=== PATIENT | male | born 1950 | race Caucasian/White ===

== ENCOUNTER → 2020-03-15 | Outpatient (REF) | payer OTHER ==
[~2020-03-15] MED LIST: ASPI81TA52 PO; CHEW500C2 PO; ZOCO20TA PO
[2020-03-15 19:17] LABS: PERCENT SATURATION 9.5 % (19.7-50.0)
== END ==
LOC: M LAB REF 17:08
PROVIDERS: ATTEND Nurse Practitioner Adult Health
DX: D64.9 Anemia, unspecified (principal)

== ENCOUNTER → 2020-07-19 | Outpatient (CLI) | payer OTHER ==
--- NOTE | 2020-08-13 15:15 | REP ---
RIGHT SHOULDER RADIOGRAPHS CLINICAL: Right shoulder pain. COMPARISON: 07/11/2018. TECHNIQUE: Internal rotation, external rotation, and Y view of the right shoulder. FINDINGS: Proximal humeral metaphysis demonstrates stable enchondroma. Cortical irregularity at the acromioclavicular joint along with blunting and subtle osteophyte formation along the calcified glenoid rim is appreciated and similar to prior examination. No acute fracture or dislocation. No obvious loose bodies are identified. 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 * Stable enchondroma involving the proximal right humerus. MTDD
== END ==
LOC: M RAD 14:37
PROVIDERS: ATTEND Orthopaedic Surgery
DX: G89.29 Other chronic pain (principal)

== ENCOUNTER → 2020-08-20 | Outpatient (REF) | payer OTHER ==
[2020-08-20 13:44] LABS: HEMATOCRIT 46.4 % (42.0-52.0)
[2020-08-20 14:11] LABS: PERCENT SATURATION 24.4 % (19.7-50.0)
== END ==
LOC: M LAB REF 12:39
PROVIDERS: ATTEND Nurse Practitioner Adult Health
DX: D50.9 Iron deficiency anemia, unspecified (principal)

== ENCOUNTER → 2020-11-22 | Outpatient (CLI) | payer OTHER ==
[~2020-11-22] MED LIST changes: +CALC-362 PO; -CHEW500C2 PO; +ECOT81TA5 PO; +ENAL5TA; +METF-838; +VITA50005
== END ==
LOC: M LABSMTC 11:19
PROVIDERS: ATTEND Anesthesiology
DX: Z01.812 Encounter for preprocedural laboratory examination (principal); Z20.822 Contact with and (suspected) exposure to COVID-19

== ENCOUNTER 2020-11-27 09:17 | Day surgery (SDC) | payer OTHER ==
[~2020-11-27] VITALS: Ht 175.3 cm; Wt 93.4 kg
[~2020-11-27 09:17] MED LIST changes: +LIDOCAINE 2% 100MG/5ML SDV (FOR ANES.) As Ordered ONE; +NS 1,000 ML IV ONE; +propofoL 200 MG/20 ML VIAL As Ordered ONE
--- NOTE | 2020-11-27 11:16 | ROOR ---
Patient Name: Zayda Flores Procedure Date: 11/27/2020 10:46 AM Date of : 1950 Age: 70 [facility]: [facility] Gender: Male Note Status: Finalized Procedure: Total Colonoscopy to Cecum + Cold Snare Polypectomy + Hemoclips Indications: High risk colon cancer surveillance: Personal history of colonic polyps, Last colonoscopy: 2015 Providers: Fahad Armijo MD Referring MD: Claudia Lala NP Requesting Provider: Medicines: Monitored Anesthesia Care Complications: No immediate complications. Procedure: Pre-Anesthesia Assessment: - The heart rate, respiratory rate, oxygen saturations, blood pressure, adequacy of pulmonary ventilation, and response to care were monitored throughout the procedure. The Colonoscope was introduced through the anus and advanced to the cecum, identified by appendiceal orifice and ileocecal valve. The colonoscopy was performed without difficulty. The patient tolerated the procedure well. The quality of the bowel preparation was excellent. Findings: The perianal and digital rectal examinations were normal. Non-bleeding internal hemorrhoids were found during retroflexion. The hemorrhoids were small and Grade I (internal hemorrhoids that do not prolapse). Two sessile polyps were found in the transverse colon. The polyps were medium in size. These polyps were removed with a cold snare. Resection and retrieval were complete. To prevent bleeding after the polypectomy, two hemostatic clips were successfully placed (MR conditional). There was no bleeding at the end of the procedure. Multiple small and large-mouthed diverticula were found in the recto-sigmoid colon, sigmoid colon and descending colon. The exam was otherwise without abnormality on direct and retroflexion views. Impression: - Non-bleeding internal hemorrhoids. - Two medium polyps in the transverse colon, removed with a cold snare. Resected and retrieved. Clips (MR conditional) were placed. - Diverticulosis in the recto-sigmoid colon, in the sigmoid colon and in the descending colon. - The examination was otherwise normal on direct and retroflexion views. - The exam was otherwise normal to the cecum. Recommendation: - Patient has a contact number available for emergencies. The signs and symptoms of potential delayed complications were discussed with the patient. Return to normal activities tomorrow. Written discharge instructions were provided to the patient. - High fiber diet. - Discharge patient to home. - Continue present medications. - Await pathology results. - Telephone GI clinic for pathology results in 1 week. - Repeat colonoscopy in 3 years for surveillance based on pathology results. - Return to referring physician. - The findings and recommendations were discussed with the patient. Procedure Code(s): --- Professional --- 79217, Colonoscopy, flexible; with removal of tumor(s), polyp(s), or other lesion(s) by snare technique Diagnosis Code(s): --- Professional --- Z86.010, Personal history of colonic polyps K64.0, First degree hemorrhoids K63.5, Polyp of colon K57.30, Diverticulosis of large intestine without perforation or abscess without bleeding CPT copyright 2019 [employer]. All rights reserved. The codes documented in this report are preliminary and upon disciplinary hearing officer review may be revised to meet current compliance requirements. Fahad Armijo MD Fahad Armijo MD 11/27/2020 11:15:53 AM Electronically signed by Fahad Armijo MD Number of Addenda: 0 Note Initiated On: 11/27/2020 10:46 AM Estimated Blood Loss: Estimated blood loss: none.
[2020-11-27 11:35] VITALS: BP 154/69
== END 2020-11-27 11:45 | disposition home or self-care (01) ==
LOC: M OPP 09:17
PROVIDERS: ATTEND Internal Medicine Gastroenterology
DX: Z12.11 Encounter for screening for malignant neoplasm of colon (principal); Z86.010 Personal history of colon polyps; K63.5 Polyp of colon; K64.0 First degree hemorrhoids; K57.30 Diverticulosis of large intestine without perforation or abscess without bleeding; E11.9 Type 2 diabetes mellitus without complications; G47.30 Sleep apnea, unspecified; Z79.82 Long term (current) use of aspirin; Z79.84 Long term (current) use of oral hypoglycemic drugs; Z79.899 Other long term (current) drug therapy

== ENCOUNTER → 2021-12-10 | Outpatient (REF) | payer BC, OTHER ==
[~2021-12-10] MED LIST changes: +ERGO500029; -LIDOCAINE 2% 100MG/5ML SDV (FOR ANES.) As Ordered ONE; -NS 1,000 ML IV ONE; -VITA50005; -propofoL 200 MG/20 ML VIAL As Ordered ONE
[2021-12-11 13:55] LABS: FERRITIN 6 NG/ML (26-388); IRON (FE) 36 UG/DL (65-175)
== END ==
LOC: M LAB REF 12:00
PROVIDERS: ATTEND Nurse Practitioner Adult Health
DX: R71.8 Other abnormality of red blood cells (principal)

== ENCOUNTER → 2022-06-24 | Outpatient (CLI) | payer BC, OTHER ==
[~2022-06-24] MED LIST changes: +SIMV-253 PO; -ZOCO20TA PO
== END ==
LOC: M WUC 13:14
PROVIDERS: ATTEND Nurse Practitioner Adult Health
DX: M54.50 Low back pain, unspecified (principal)

== ENCOUNTER → 2023-01-05 | Outpatient (REF) | payer BC ==
[~2023-01-05] MED LIST changes: +ENAL1TAB48; -ENAL5TA
[2023-01-05 18:07] LABS: HEMATOCRIT 44.1 % (42.0-52.0)
[2023-01-05 18:51] LABS: FERRITIN 8.5 NG/ML (10.5-307.3)
[2023-01-05 19:25] LABS: PERCENT SATURATION 13.5 % (19.7-50.0)
== END ==
LOC: M LAB REF 17:24
PROVIDERS: ATTEND Nurse Practitioner Adult Health
DX: D50.9 Iron deficiency anemia, unspecified (principal)

== ENCOUNTER 2024-05-29 08:16 | Day surgery (SDC) | payer MEDICARE ==
[~2024-05-29] VITALS: Ht 175.3 cm; Wt 78.7 kg
[~2024-05-29 08:16] MED LIST changes: -ENAL1TAB48; +ENAL1TAB48 PO; -ERGO500029; +ERGO500029 PO; +JARD1TAB3 PO; -METF-838; +METF-838 PO; +NS 1,000 ML IV ONE; +SEMA2PEN
[2024-05-29] MEDS ORDERED: propofoL 500 MG/50 ML VIAL As Ordered ONE (08:56)
[2024-05-29] MEDS ORDERED: LIDOCAINE 2% 100MG/5ML SDV (FOR ANES.) As Ordered ONE (08:56)
[2024-05-29 09:45] VITALS: BP 148/70; O2SAT 99
== END 2024-05-29 09:55 | disposition home or self-care (01) ==
LOC: M OPP 08:16
PROVIDERS: ATTEND Internal Medicine Gastroenterology
DX: Z12.11 Encounter for screening for malignant neoplasm of colon (principal); Z86.010 Personal history of colon polyps; D12.6 Benign neoplasm of colon, unspecified; K64.0 First degree hemorrhoids; K57.30 Diverticulosis of large intestine without perforation or abscess without bleeding; E11.9 Type 2 diabetes mellitus without complications; G47.30 Sleep apnea, unspecified; Z99.89 Dependence on other enabling machines and devices; Z79.02 Long term (current) use of antithrombotics/antiplatelets; Z79.82 Long term (current) use of aspirin; Z79.84 Long term (current) use of oral hypoglycemic drugs; Z79.811 Long term (current) use of aromatase inhibitors

== ENCOUNTER 2024-11-05 15:57 | Emergency (ER) | payer MEDICARE ==
[~2024-11-05] VITALS: Ht 175.3 cm; Wt 81.1 kg
[~2024-11-05 15:57] MED LIST changes: -NS 1,000 ML IV ONE
[2024-11-05] MEDS: ASPIRIN 81MG CHEW TABLET PO ONE (16:35)
[2024-11-05 16:56] LABS: BASO % 0.4 % (0.0-1.0); EOS # 0.1 10^3/uL (0.0-0.5); EOS % 1.5 % (0.0-3.0); HEMATOCRIT 42.6 % (42.0-52.0); HEMOGLOBIN 13.6 g/dl (13.5-17.5); LYMPH # 1.3 10^3/uL (1.5-5.0); LYMPH % 29.2 % (24.0-44.0); MEAN CORPUSCULAR HEMOGLOBIN 27.6 pg (27.0-33.0); MEAN CORPUSCULAR HGB CONC 31.9 g/dl (32.0-36.5); MEAN CORPUSCULAR VOLUME 86.4 fl (80.0-96.0); MONO # 0.3 10^3/uL (0.0-0.8); MONO % 6.9 % (2.0-8.0); NEUTROPHILS # 2.8 10^3/uL (1.5-8.5); NEUTROPHILS % 61.6 % (36.0-66.0); PLATELET COUNT, AUTOMATED 189 10^3/uL (150-450); RED BLOOD COUNT 4.93 10^6/uL (4.30-6.10); WHITE BLOOD COUNT 4.5 10^3/uL (4.0-10.0)
[2024-11-05] MEDS ORDERED: ISOVUE-370 76% 100ML VIAL As Ordered ONE (17:05)
[2024-11-05 17:18] LABS: LIPASE 51 U/L (12-53)
[2024-11-05 17:19] LABS: CK-MB VALUE MASS 2.2 NG/ML (<3.6)
[2024-11-05 17:21] LABS: ALBUMIN 3.7 G/DL (3.2-5.2); ALKALINE PHOSPHATASE 96 U/L (40-129); ALT/SGPT 20 U/L (7.0-40); AST/SGOT 17 U/L (<34); BILIRUBIN,DIRECT 0.1 MG/DL (<0.4); BILIRUBIN,TOTAL 0.5 MG/DL (0.3-1.2); BLOOD UREA NITROGEN 23 MG/DL (9-23); CALCIUM LEVEL 8.8 MG/DL (8.3-10.6); CARBON DIOXIDE LEVEL 27 MMOL/L (20-31); CHLORIDE LEVEL 106 MMOL/L (98-107); CPK CREATINE PHOSPHOKINASE 88 U/L (46-171); CREATININE FOR GFR 0.68 MG/DL (0.70-1.30); GLOMERULAR FILTRATION RATE > 60.0 (>42); GLUCOSE, FASTING 249 MG/DL (74-106); POTASSIUM SERUM 3.8 MMOL/L (3.5-5.1); SODIUM LEVEL 139 MMOL/L (136-145); TOTAL PROTEIN 6.4 G/DL (5.7-8.2)
[2024-11-05 17:23] LABS: FREE T4 1.29 NG/DL (0.89-1.76); THYROID STIMULATING HORMONE 0.536 uIU/ML (0.55-4.78)
[2024-11-05] MEDS: FAMOTIDINE 20 MG TAB PO ONE (17:50)
[2024-11-05] MEDS: HEPARIN SOD (PORCINE) 5000UNITS/ML 1ML VIAL/SYRINGE IV ONE (17:50)
[2024-11-05] MEDS: HEPARIN DRIP 25,000 UNITS in IV 1 EA IV SCH (17:50)
[2024-11-05 18:14] LABS: CK-MB VALUE MASS 2.2 NG/ML (<3.6)
[2024-11-05 18:23] LABS: MB/CK RELATIVE INDEX 2.65 (< OR =4)
[2024-11-05 18:26] LABS: INR 1.04; PARTIAL THROMBOPLASTIN TIME 30.9 SECONDS (24.8-34.2); PROTHROMBIN TIME 13.9 SECONDS (12.5-14.5)
[2024-11-05 21:20] LABS: CK-MB VALUE MASS 1.8 NG/ML (<3.6)
[2024-11-05 21:26] LABS: MB/CK RELATIVE INDEX 2.3 (< OR =4)
[2024-11-05 21:43] LABS: MAGNESIUM LEVEL 2.1 MG/DL (1.8-2.4)
[2024-11-05] MEDS ORDERED: DEXTROSE 50% 50ML SYRINGE IV PRN (22:45)
[2024-11-05] MEDS ORDERED: GLUCAGON INJ 1MG VIAL SC PRN (22:45)
[2024-11-05] MEDS ORDERED: GLUCOSE 4 GM CHEW PO PRN (22:45)
[2024-11-05] MEDS ORDERED: HEPARIN DRIP 25,000 UNITS in IV 1 EA IV SCH (23:00)
[2024-11-05] MEDS ORDERED: HEPARIN SOD (PORCINE) 5000UNITS/ML 1ML VIAL/SYRINGE IV PRN (23:00)
[2024-11-06] MEDS: INSULIN LISPRO (NovoLOG) PER UNIT SC SCH
[2024-11-06 00:39] LABS: HEMATOCRIT 39.1 % (42.0-52.0); HEMOGLOBIN 12.4 g/dl (13.5-17.5); MEAN CORPUSCULAR HEMOGLOBIN 27.3 pg (27.0-33.0); MEAN CORPUSCULAR HGB CONC 31.7 g/dl (32.0-36.5); MEAN CORPUSCULAR VOLUME 85.9 fl (80.0-96.0); PLATELET COUNT, AUTOMATED 165 10^3/uL (150-450); RED BLOOD COUNT 4.55 10^6/uL (4.30-6.10); WHITE BLOOD COUNT 4.9 10^3/uL (4.0-10.0)
[2024-11-06 01:03] LABS: INR 1.07; PROTHROMBIN TIME 14.2 SECONDS (12.5-14.5)
[2024-11-06 06:31] VITALS: BP 126/84; TEMP 97.6; O2SAT 98
[2024-11-06] MEDS ORDERED: ATORVASTATIN 20 MG TAB PO ONE (08:00)
[2024-11-06] MEDS ORDERED: ASPIRIN 81MG ENTERIC TABLET PO SCH (09:00)
[2024-11-06] MEDS ORDERED: SIMVASTATIN 20 MG TAB PO SCH (09:00)
[2024-11-07] MEDS ORDERED: ATORVASTATIN 20 MG TAB PO SCH (09:00)
== END 2024-11-06 06:40 | disposition short-term general hospital (02) ==
LOC: M ED 15:57
DX: I20.0 Unstable angina (principal); I10 Essential (primary) hypertension; E78.5 Hyperlipidemia, unspecified; E11.9 Type 2 diabetes mellitus without complications; E55.9 Vitamin D deficiency, unspecified; M51.360 Other intervertebral disc degeneration, lumbar region with discogenic back pain only; Z79.82 Long term (current) use of aspirin; Z79.4 Long term (current) use of insulin; Z79.899 Other long term (current) drug therapy
CPT/HCPCS: 36415; 71045; 71275; 80047; 80048; 80076; 82550; 82553; 83690; 83735; 83880; 84439; 84443; 84484; 85025; 85027; 85610; 85730; 93005; 93041; 94760; 96365; 96366; 99285; Q9967

== ENCOUNTER → 2025-02-08 | Outpatient (CLI) | payer MEDICARE | LOC: M WUC 11:35 | PROVIDERS: ATTEND Nurse Practitioner Adult Health | DX: M19.011 Primary osteoarthritis, right shoulder (principal); M50.30 Other cervical disc degeneration, unspecified cervical region; M25.511 Pain in right shoulder ==

== ENCOUNTER → 2025-10-04 | Outpatient (REF) | payer MEDICARE ==
[2025-10-04 13:56] LABS: IRON (FE) 43.0 UG/DL (65-175)
== END ==
LOC: M LAB REF 12:25
PROVIDERS: ATTEND Nurse Practitioner Adult Health
DX: D50.9 Iron deficiency anemia, unspecified (principal)